=== PATIENT | female | born 1960 | race Caucasian/White ===

== ENCOUNTER 2023-08-02 10:35 | Inpatient (IN) | payer OTHER ==
[~2023-08-02] VITALS: Ht 160 cm; Wt 68.5 kg
[2023-08-02 10:50] VITALS: BP 129/69; PULSE 63; RESP 18; TEMP 98.3; O2SAT 99
[2023-08-02] MEDS ORDERED: ALBUTEROL SULFATE 2.5 MG/0.5 ML NEB SOLUTION NEB PRN (11:15)
[2023-08-02] MEDS ORDERED: ONDANSETRON HCL 4 MG TABLET PO PRN (11:15)
[2023-08-02] MEDS ORDERED: BISACODYL 10 MG RECTAL RECTAL SUPPOSITORY PR PRN (11:15)
[2023-08-02] MEDS ORDERED: HydrALAZINE HCL 50 MG TABLET PO PRN (11:15)
[2023-08-02] MEDS ORDERED: HYDROCODONE/ACETAMINOPHEN 10-325 MG TABLET PO PRN (11:15)
[2023-08-02] MEDS ORDERED: DEXTROSE 50%-WATER 25 GM/50 ML SYRINGE IVP PRN (11:15)
[2023-08-02] MEDS ORDERED: MAGNESIUM HYDROXIDE SUSPENSION 30 ML UDCUP PO PRN (11:15)
[2023-08-02] MEDS: INSULIN LISPRO 100 UNITS/ML SQ PRN (12:56)
[2023-08-02 13:01] LABS: GLUCOMETER DEV NAME(LOC) 2WR.1D; GLUCOSE,POINT OF CARE 187 MG/DL (70-110)
[2023-08-02 14:18] VITALS: O2SAT 99
[2023-08-02 17:31] LABS: GLUCOMETER DEV NAME(LOC) 2WR.1D; GLUCOSE,POINT OF CARE 107 MG/DL (70-110)
[2023-08-02 20:00] VITALS: BP 145/74; PULSE 71; RESP 19; TEMP 98.1; O2SAT 97
[2023-08-02] MEDS: INSULIN GLARGINE,HUM.REC.ANLOG 100 UNITS/ML SQ SCH (20:48)
[2023-08-02] MEDS: LISINOPRIL 20 MG TABLET PO SCH (20:49)
[2023-08-02] MEDS: METOPROLOL TARTRATE 50 MG TABLET PO SCH (20:50)
[2023-08-02 21:11] LABS: GLUCOMETER DEV NAME(LOC) 2WR.1D; GLUCOSE,POINT OF CARE 133 MG/DL (70-110)
[2023-08-03 06:00] VITALS: BP 151/87; PULSE 67; RESP 18; O2SAT 96
[2023-08-03] MEDS: HydrALAZINE HCL 50 MG TABLET PO SCH ×3 (06:06→20:26)
[2023-08-03 06:26] LABS: GLUCOMETER DEV NAME(LOC) 2WR.1D; GLUCOSE,POINT OF CARE 109 MG/DL (70-110)
[2023-08-03 07:12] LABS: BASOPHILS % (AUTO) 1.3 % (0.0-2.0); EOSINOPHILS % (AUTO) 1.5 % (1.0-6.0); HEMATOCRIT 38.7 % (36-46); HEMOGLOBIN 13.3 g/dL (12.0-16.0); LYMPHOCYTES # (AUTO) 1.6 K/uL (1.0-4.8); LYMPHOCYTES % (AUTO) 20.8 % (22.0-44.0); MEAN CORPUSCULAR HEMOGLOBIN 32.8 pg (26.0-34.0); MEAN CORPUSCULAR HGB CONC 34.4 G/dL (31.0-37.0); MEAN CORPUSCULAR VOLUME 95 fL (80-100); MONOCYTES # (AUTO) 0.6 K/uL (0.1-1.0); NEUTROPHILS # (AUTO) 5.3 K/uL (1.8-7.7); NEUTROPHILS % (AUTO) 68.4 % (40.0-70.0); PLATELET COUNT (AUTO) 181 K/uL (150-450); RED BLOOD CELL COUNT(AUTO) 4.06 MIL/uL (4.00-5.20); RED CELL DISTRIBUTION WIDTH 12.7 % (11.5-14.5); WHITE BLOOD COUNT (AUTO) 7.8 K/uL (4.5-11.0)
[2023-08-03 07:30] LABS: ALBUMIN 3.2 g/dL (3.4-5.0); BILIRUBIN,TOTAL 0.5 mg/dL (0.1-1.0); CALCIUM, TOTAL 9.9 mg/dL (8.8-10.5); CREATININE 1.26 mg/dL (0.60-1.30); POTASSIUM 3.6 mmol/L (3.5-5.1); TOTAL PROTEIN, SERUM 7.1 g/dL (6.4-8.2)
[2023-08-03 08:05] VITALS: BP 128/63; PULSE 71; RESP 18; TEMP 98.2; O2SAT 98
[2023-08-03] MEDS: ENOXAPARIN SODIUM 40 MG/0.4 ML PF SYRINGE SQ SCH (08:15)
[2023-08-03] MEDS: AmLODIPine BESYLATE 10 MG TABLET PO SCH (08:18)
[2023-08-03] MEDS: CLOPIDOGREL BISULFATE 75 MG TABLET PO SCH (08:18)
[2023-08-03] MEDS: LISINOPRIL 20 MG TABLET PO SCH ×2 (08:18→20:26)
[2023-08-03] MEDS: ATORVASTATIN CALCIUM 40 MG TABLET PO SCH (08:18)
[2023-08-03] MEDS: ASPIRIN 81 MG CHEWABLE TABLET PO SCH (08:18)
[2023-08-03] MEDS: METOPROLOL TARTRATE 50 MG TABLET PO SCH ×2 (08:19→20:26)
[2023-08-03] MEDS: LORATADINE 10 MG TABLET PO SCH (08:19)
[2023-08-03] MEDS: FLUTICASONE/VILANTEROL 200-25 MCG/INH INHALER [14] IH SCH (08:25)
[2023-08-03] MEDS: FLUTICASONE PROPIONATE 50 MCG/SPRAY 16 GM NASAL SPRAY NASAL SCH (08:26)
[2023-08-03] MEDS: INSULIN GLARGINE,HUM.REC.ANLOG 100 UNITS/ML SQ SCH ×2 (08:31→20:32)
[2023-08-03 11:35] LABS: GLUCOMETER DEV NAME(LOC) 2WR.2B; GLUCOSE,POINT OF CARE 142 MG/DL (70-110)
[2023-08-03] MEDS: INSULIN LISPRO 100 UNITS/ML SQ PRN ×2 (12:51→20:33)
[2023-08-03] MEDS: ACETAMINOPHEN 325 MG TABLET PO PRN (15:19)
[2023-08-03] MEDS: FLUoxetine HCL 10 MG CAPSULE PO SCH (17:05)
[2023-08-03 17:37] LABS: GLUCOMETER DEV NAME(LOC) 2WR.2B; GLUCOSE,POINT OF CARE 112 MG/DL (70-110)
[2023-08-03 20:10] LABS: APPEARANCE,URINE HAZY (CLEAR); BILIRUBIN,URINE NEGATIVE (NEGATIVE); COLOR,URINE YELLOW (YELLOW); GLUCOSE, URINE (UA) NEGATIVE (NEGATIVE); KETONES,URINE NEGATIVE (NEGATIVE); LEUKOCYTE ESTERASE ,URINE SMALL (NEGATIVE); NITRATE,URINE POSITIVE (NEGATIVE); OCCULT BLOOD,URINE NEGATIVE (NEGATIVE); PROTEIN,URINE 30-70 mg/dL (NEGATIVE); UROBILINOGEN,URINE <=1.0 mg/dL (<=1.0)
[2023-08-03 20:22] LABS: BACTERIA,URINE Many /HPF (None Seen); HYALINE CASTS, URINE 0-2 /LPF (None Seen); RBC,URINE 0-2 /HPF (0-2); SQUAMOUS EPITHELIAL CELL,UR Moderate /LPF (None Seen)
[2023-08-03 21:00] VITALS: BP 144/76; PULSE 79; RESP 19; TEMP 98.2; O2SAT 98
[2023-08-03] MEDS: ZOLPIDEM TARTRATE 10 MG TABLET PO PRN (21:56)
[2023-08-03 21:57] LABS: GLUCOMETER DEV NAME(LOC) 2WR.2B; GLUCOSE,POINT OF CARE 146 MG/DL (70-110)
[2023-08-04 05:44] VITALS: BP 136/69; PULSE 70; RESP 18; O2SAT 97
[2023-08-04] MEDS: HydrALAZINE HCL 50 MG TABLET PO SCH ×3 (05:45→20:32)
[2023-08-04 07:06] LABS: GLUCOMETER DEV NAME(LOC) 2WR.1D; GLUCOSE,POINT OF CARE 199 MG/DL (70-110)
[2023-08-04 08:05] VITALS: BP 122/60; PULSE 77; RESP 18; TEMP 98.1; O2SAT 98
[2023-08-04] MEDS: INSULIN LISPRO 100 UNITS/ML SQ PRN ×3 (08:06→20:41)
[2023-08-04] MEDS: FLUTICASONE/VILANTEROL 200-25 MCG/INH INHALER [14] IH SCH (08:10)
[2023-08-04] MEDS: ATORVASTATIN CALCIUM 40 MG TABLET PO SCH (08:11)
[2023-08-04] MEDS: FLUTICASONE PROPIONATE 50 MCG/SPRAY 16 GM NASAL SPRAY NASAL SCH (08:11)
[2023-08-04] MEDS: CLOPIDOGREL BISULFATE 75 MG TABLET PO SCH (08:12)
[2023-08-04] MEDS: AmLODIPine BESYLATE 10 MG TABLET PO SCH (08:12)
[2023-08-04] MEDS: ASPIRIN 81 MG CHEWABLE TABLET PO SCH (08:12)
[2023-08-04] MEDS: LISINOPRIL 20 MG TABLET PO SCH ×2 (08:12→20:32)
[2023-08-04] MEDS: FLUoxetine HCL 10 MG CAPSULE PO SCH (08:14)
[2023-08-04] MEDS: METOPROLOL TARTRATE 50 MG TABLET PO SCH ×2 (08:14→20:32)
[2023-08-04] MEDS: LORATADINE 10 MG TABLET PO SCH (08:15)
[2023-08-04] MEDS: ENOXAPARIN SODIUM 40 MG/0.4 ML PF SYRINGE SQ SCH (08:20)
[2023-08-04] MEDS: INSULIN GLARGINE,HUM.REC.ANLOG 100 UNITS/ML SQ SCH ×2 (08:23→20:39)
[2023-08-04 10:15] VITALS: BP 131/64; PULSE 82; RESP 18; TEMP 98; O2SAT 98
[2023-08-04] MEDS: ACETAMINOPHEN 325 MG TABLET PO PRN (10:15)
[2023-08-04 11:46] LABS: GLUCOMETER DEV NAME(LOC) 2WR.1D; GLUCOSE,POINT OF CARE 144 MG/DL (70-110)
[2023-08-04 13:33] VITALS: BP 128/72; PULSE 78; RESP 18; TEMP 98.4; O2SAT 98
[2023-08-04 17:36] LABS: GLUCOMETER DEV NAME(LOC) 2WR.2B; GLUCOSE,POINT OF CARE 111 MG/DL (70-110)
[2023-08-04 20:11] VITALS: BP 143/83; PULSE 87; RESP 18; TEMP 98.2; O2SAT 95
[2023-08-04 21:21] LABS: GLUCOMETER DEV NAME(LOC) 2WR.2B; GLUCOSE,POINT OF CARE 179 MG/DL (70-110)
[2023-08-05 06:49] VITALS: BP 155/71; PULSE 78; RESP 18; O2SAT 97
[2023-08-05] MEDS: HydrALAZINE HCL 50 MG TABLET PO SCH ×3 (06:51→22:07)
[2023-08-05 08:10] VITALS: BP 144/59; PULSE 70; RESP 18; TEMP 97.6; O2SAT 99
[2023-08-05 08:11] LABS: GLUCOMETER DEV NAME(LOC) 2WR.1D; GLUCOSE,POINT OF CARE 120 MG/DL (70-110)
[2023-08-05] MEDS: CLOPIDOGREL BISULFATE 75 MG TABLET PO SCH (09:29)
[2023-08-05] MEDS: LISINOPRIL 20 MG TABLET PO SCH ×2 (09:29→20:35)
[2023-08-05] MEDS: ASPIRIN 81 MG CHEWABLE TABLET PO SCH (09:29)
[2023-08-05] MEDS: AmLODIPine BESYLATE 10 MG TABLET PO SCH (09:29)
[2023-08-05] MEDS: METOPROLOL TARTRATE 50 MG TABLET PO SCH ×2 (09:30→20:36)
[2023-08-05] MEDS: FLUoxetine HCL 10 MG CAPSULE PO SCH (09:30)
[2023-08-05] MEDS: ATORVASTATIN CALCIUM 40 MG TABLET PO SCH (09:30)
[2023-08-05] MEDS: ENOXAPARIN SODIUM 40 MG/0.4 ML PF SYRINGE SQ SCH (09:31)
[2023-08-05] MEDS: FLUTICASONE/VILANTEROL 200-25 MCG/INH INHALER [14] IH SCH (09:31)
[2023-08-05] MEDS: LORATADINE 10 MG TABLET PO SCH (09:31)
[2023-08-05] MEDS: FLUTICASONE PROPIONATE 50 MCG/SPRAY 16 GM NASAL SPRAY NASAL SCH (09:32)
[2023-08-05] MEDS: INSULIN GLARGINE,HUM.REC.ANLOG 100 UNITS/ML SQ SCH ×2 (09:33→20:39)
[2023-08-05] MEDS: INSULIN LISPRO 100 UNITS/ML SQ PRN (12:12)
[2023-08-05 13:06] LABS: GLUCOMETER DEV NAME(LOC) 2WR.1D; GLUCOSE,POINT OF CARE 188 MG/DL (70-110)
[2023-08-05 14:46] VITALS: BP 137/78; PULSE 58
[2023-08-05 17:41] LABS: GLUCOMETER DEV NAME(LOC) 2WR.2B; GLUCOSE,POINT OF CARE 94 MG/DL (70-110)
[2023-08-05 19:58] VITALS: BP 143/62; PULSE 66; RESP 18; TEMP 97.5; O2SAT 98
[2023-08-05 22:06] VITALS: BP 129/63; PULSE 59
[2023-08-05] MEDS: ZOLPIDEM TARTRATE 10 MG TABLET PO PRN (22:07)
[2023-08-05] MEDS: ETHYL ALCOHOL 62% ANTISEPTIC NASAL SANITIZER 0.6 ML AMPUL NASAL SCH (22:07)
[2023-08-05 22:26] LABS: GLUCOMETER DEV NAME(LOC) 2WR.1D; GLUCOSE,POINT OF CARE 131 MG/DL (70-110)
[2023-08-06 05:34] VITALS: BP 139/56; PULSE 69
[2023-08-06] MEDS: HydrALAZINE HCL 50 MG TABLET PO SCH ×4 (05:35→21:00)
[2023-08-06 06:36] LABS: GLUCOMETER DEV NAME(LOC) 2WR.1D; GLUCOSE,POINT OF CARE 125 MG/DL (70-110)
[2023-08-06 08:01] VITALS: BP 137/53; PULSE 65; RESP 18; TEMP 98.3; O2SAT 98
[2023-08-06] MEDS: FLUTICASONE/VILANTEROL 200-25 MCG/INH INHALER [14] IH SCH (08:07)
[2023-08-06] MEDS: FLUoxetine HCL 10 MG CAPSULE PO SCH (08:08)
[2023-08-06] MEDS: LISINOPRIL 20 MG TABLET PO SCH ×2 (08:08→20:22)
[2023-08-06] MEDS: METOPROLOL TARTRATE 50 MG TABLET PO SCH ×2 (08:08→20:22)
[2023-08-06] MEDS: ATORVASTATIN CALCIUM 40 MG TABLET PO SCH (08:08)
[2023-08-06] MEDS: FLUTICASONE PROPIONATE 50 MCG/SPRAY 16 GM NASAL SPRAY NASAL SCH (08:08)
[2023-08-06] MEDS: ENOXAPARIN SODIUM 40 MG/0.4 ML PF SYRINGE SQ SCH (08:08)
[2023-08-06] MEDS: AmLODIPine BESYLATE 10 MG TABLET PO SCH (08:09)
[2023-08-06] MEDS: CLOPIDOGREL BISULFATE 75 MG TABLET PO SCH (08:09)
[2023-08-06] MEDS: ETHYL ALCOHOL 62% ANTISEPTIC NASAL SANITIZER 0.6 ML AMPUL NASAL SCH ×2 (08:09→20:22)
[2023-08-06] MEDS: ASPIRIN 81 MG CHEWABLE TABLET PO SCH (08:09)
[2023-08-06] MEDS: LORATADINE 10 MG TABLET PO SCH (08:11)
[2023-08-06] MEDS: INSULIN GLARGINE,HUM.REC.ANLOG 100 UNITS/ML SQ SCH ×2 (08:14→20:56)
[2023-08-06] MEDS: INSULIN LISPRO 100 UNITS/ML SQ PRN ×2 (12:02→20:57)
[2023-08-06 13:41] LABS: GLUCOMETER DEV NAME(LOC) 2WR.2B; GLUCOSE,POINT OF CARE 201 MG/DL (70-110)
[2023-08-06 14:35] VITALS: BP 141/55; PULSE 62
[2023-08-06 18:06] LABS: GLUCOMETER DEV NAME(LOC) 2WR.1D; GLUCOSE,POINT OF CARE 118 MG/DL (70-110)
[2023-08-06] MEDS: ZOLPIDEM TARTRATE 10 MG TABLET PO PRN (20:25)
[2023-08-06 20:51] LABS: GLUCOMETER DEV NAME(LOC) 2WR.2B; GLUCOSE,POINT OF CARE 169 MG/DL (70-110)
[2023-08-06 21:00] VITALS: BP 141/76; PULSE 78; RESP 18; TEMP 98.2; O2SAT 96
[2023-08-07 05:15] VITALS: BP 134/67; PULSE 66; RESP 18
[2023-08-07] MEDS: HydrALAZINE HCL 50 MG TABLET PO SCH ×3 (05:19→22:17)
[2023-08-07 06:41] LABS: GLUCOMETER DEV NAME(LOC) 2WR.2B; GLUCOSE,POINT OF CARE 178 MG/DL (70-110)
[2023-08-07] MEDS: FLUTICASONE/VILANTEROL 200-25 MCG/INH INHALER [14] IH SCH (08:05)
[2023-08-07] MEDS: FLUTICASONE PROPIONATE 50 MCG/SPRAY 16 GM NASAL SPRAY NASAL SCH (08:06)
[2023-08-07] MEDS: FLUoxetine HCL 10 MG CAPSULE PO SCH (08:09)
[2023-08-07] MEDS: ETHYL ALCOHOL 62% ANTISEPTIC NASAL SANITIZER 0.6 ML AMPUL NASAL SCH ×2 (08:09→20:48)
[2023-08-07] MEDS: AmLODIPine BESYLATE 10 MG TABLET PO SCH (08:09)
[2023-08-07] MEDS: LORATADINE 10 MG TABLET PO SCH (08:09)
[2023-08-07] MEDS: METOPROLOL TARTRATE 50 MG TABLET PO SCH ×2 (08:09→20:48)
[2023-08-07] MEDS: CLOPIDOGREL BISULFATE 75 MG TABLET PO SCH (08:09)
[2023-08-07] MEDS: LISINOPRIL 20 MG TABLET PO SCH (08:09)
[2023-08-07] MEDS: ASPIRIN 81 MG CHEWABLE TABLET PO SCH (08:09)
[2023-08-07] MEDS: ENOXAPARIN SODIUM 40 MG/0.4 ML PF SYRINGE SQ SCH (08:09)
[2023-08-07 08:10] VITALS: BP 136/60; PULSE 69; RESP 18; TEMP 98.3; O2SAT 100
[2023-08-07] MEDS: ATORVASTATIN CALCIUM 40 MG TABLET PO SCH (08:10)
[2023-08-07] MEDS: INSULIN GLARGINE,HUM.REC.ANLOG 100 UNITS/ML SQ SCH (08:27)
[2023-08-07] MEDS: INSULIN LISPRO 100 UNITS/ML SQ PRN ×3 (08:29→18:15)
[2023-08-07 08:33] LABS: BASOPHILS % (AUTO) 1.3 % (0.0-2.0); EOSINOPHILS % (AUTO) 2.8 % (1.0-6.0); HEMATOCRIT 37.2 % (36-46); HEMOGLOBIN 12.6 g/dL (12.0-16.0); LYMPHOCYTES # (AUTO) 2.2 K/uL (1.0-4.8); LYMPHOCYTES % (AUTO) 28.4 % (22.0-44.0); MEAN CORPUSCULAR HEMOGLOBIN 32.5 pg (26.0-34.0); MEAN CORPUSCULAR HGB CONC 33.8 G/dL (31.0-37.0); MEAN CORPUSCULAR VOLUME 96 fL (80-100); MONOCYTES # (AUTO) 0.6 K/uL (0.1-1.0); MONOCYTES % (AUTO) 8.2 % (2.0-9.0); NEUTROPHILS # (AUTO) 4.5 K/uL (1.8-7.7); NEUTROPHILS % (AUTO) 59.3 % (40.0-70.0); PLATELET COUNT (AUTO) 206 K/uL (150-450); RED BLOOD CELL COUNT(AUTO) 3.87 MIL/uL (4.00-5.20); RED CELL DISTRIBUTION WIDTH 12.9 % (11.5-14.5); WHITE BLOOD COUNT (AUTO) 7.6 K/uL (4.5-11.0)
[2023-08-07 08:39] LABS: CREATININE 1.45 mg/dL (0.60-1.30); POTASSIUM 4.1 mmol/L (3.5-5.1)
[2023-08-07] MEDS ORDERED: SODIUM CHLORIDE 0.9% 500 ML IV ONE (12:30)
[2023-08-07 12:36] LABS: GLUCOMETER DEV NAME(LOC) 2WR.2B; GLUCOSE,POINT OF CARE 193 MG/DL (70-110)
[2023-08-07] MEDS: GlipiZIDE 5 MG TABLET PO SCH (16:11)
[2023-08-07 18:27] LABS: GLUCOMETER DEV NAME(LOC) 2WR.2B; GLUCOSE,POINT OF CARE 164 MG/DL (70-110)
[2023-08-07 20:36] LABS: GLUCOMETER DEV NAME(LOC) 2WR.1D; GLUCOSE,POINT OF CARE 69 MG/DL (70-110)
[2023-08-07] MEDS: NEOMYCIN/BACITRACIN/POLYMYXIN B 30 GM OINTMENT TP SCH (20:48)
[2023-08-07] MEDS: HEPARIN SODIUM,PORCINE 5,000 UNITS/ML VIAL SQ SCH (20:48)
[2023-08-07] MEDS: ZOLPIDEM TARTRATE 10 MG TABLET PO PRN (20:50)
[2023-08-07 21:00] VITALS: BP 151/66; PULSE 80; RESP 18; TEMP 98.1; O2SAT 96
[2023-08-07 21:46] LABS: GLUCOMETER DEV NAME(LOC) 2WR.2B; GLUCOSE,POINT OF CARE 133 MG/DL (70-110)
[2023-08-08] MEDS ORDERED: CETI-450 PO (00:34)
[2023-08-08] MEDS ORDERED: ASPI-1450 PO (00:34)
[2023-08-08] MEDS ORDERED: AMLO-258 PO (03:06)
[2023-08-08] MEDS ORDERED: CLOP75TA60 PO (03:07)
[2023-08-08] MEDS ORDERED: FLUO10CA24 PO (03:07)
[2023-08-08] MEDS ORDERED: ATOR40TA28 PO (03:07)
[2023-08-08] MEDS ORDERED: METO50 PO (03:07)
[2023-08-08] MEDS ORDERED: HYDR50TA36 PO (03:07)
[2023-08-08] MEDS ORDERED: LORA10TA7 PO (03:07)
[2023-08-08] MEDS ORDERED: LISI-894 PO (03:07)
[2023-08-08] MEDS ORDERED: GLIP-333 PO (03:07)
[2023-08-08] MEDS: HydrALAZINE HCL 50 MG TABLET PO SCH ×3 (05:39→21:56)
[2023-08-08 06:00] VITALS: BP 152/74; PULSE 67
[2023-08-08 06:46] LABS: GLUCOMETER DEV NAME(LOC) 2WR.2B; GLUCOSE,POINT OF CARE 128 MG/DL (70-110)
[2023-08-08 07:24] LABS: CREATININE 1.36 mg/dL (0.60-1.30); POTASSIUM 4.3 mmol/L (3.5-5.1)
[2023-08-08 07:35] VITALS: BP 147/60; PULSE 69; RESP 18; TEMP 98.2; O2SAT 99
[2023-08-08] MEDS: ATORVASTATIN CALCIUM 40 MG TABLET PO SCH (07:46)
[2023-08-08] MEDS: AmLODIPine BESYLATE 10 MG TABLET PO SCH (07:46)
[2023-08-08] MEDS: ASPIRIN 81 MG CHEWABLE TABLET PO SCH (07:47)
[2023-08-08] MEDS: CLOPIDOGREL BISULFATE 75 MG TABLET PO SCH (07:47)
[2023-08-08] MEDS: NEOMYCIN/BACITRACIN/POLYMYXIN B 30 GM OINTMENT TP SCH ×2 (07:47→20:28)
[2023-08-08] MEDS: LISINOPRIL 20 MG TABLET PO SCH (07:47)
[2023-08-08] MEDS: HEPARIN SODIUM,PORCINE 5,000 UNITS/ML VIAL SQ SCH ×2 (07:47→20:30)
[2023-08-08] MEDS: FLUTICASONE PROPIONATE 50 MCG/SPRAY 16 GM NASAL SPRAY NASAL SCH (07:48)
[2023-08-08] MEDS: GlipiZIDE 5 MG TABLET PO SCH ×2 (07:49→16:32)
[2023-08-08] MEDS: FLUTICASONE/VILANTEROL 200-25 MCG/INH INHALER [14] IH SCH (07:49)
[2023-08-08] MEDS: METOPROLOL TARTRATE 50 MG TABLET PO SCH ×2 (07:49→20:28)
[2023-08-08] MEDS: LORATADINE 10 MG TABLET PO SCH (07:49)
[2023-08-08] MEDS: ETHYL ALCOHOL 62% ANTISEPTIC NASAL SANITIZER 0.6 ML AMPUL NASAL SCH ×2 (07:50→20:28)
[2023-08-08] MEDS: FLUoxetine HCL 10 MG CAPSULE PO SCH (07:50)
[2023-08-08] MEDS: CIPROFLOXACIN HCL 250 MG TABLET PO SCH ×2 (09:45→20:28)
[2023-08-08] MEDS: INSULIN LISPRO 100 UNITS/ML SQ PRN ×3 (12:22→20:35)
[2023-08-08 12:47] LABS: GLUCOMETER DEV NAME(LOC) 2WR.2B; GLUCOSE,POINT OF CARE 211 MG/DL (70-110)
[2023-08-08 14:42] VITALS: BP 128/55; PULSE 61
[2023-08-08 17:45] LABS: GLUCOMETER DEV NAME(LOC) 2WR.2B; GLUCOSE,POINT OF CARE 159 MG/DL (70-110)
[2023-08-08] MEDS: ACETAMINOPHEN 325 MG TABLET PO PRN (18:29)
[2023-08-08 18:55] VITALS: PULSE 72; RESP 16; O2SAT 97
[2023-08-08 21:00] VITALS: BP 146/59; PULSE 72; RESP 19; TEMP 98.1; O2SAT 98
[2023-08-08 22:00] VITALS: BP 148/62; PULSE 70; RESP 18; O2SAT 98
[2023-08-08] MEDS: ZOLPIDEM TARTRATE 10 MG TABLET PO PRN (22:00)
[2023-08-09 05:11] LABS: GLUCOMETER DEV NAME(LOC) 2WR.2B; GLUCOSE,POINT OF CARE 185 MG/DL (70-110)
[2023-08-09 06:00] VITALS: BP 147/71; PULSE 63
[2023-08-09] MEDS: HydrALAZINE HCL 50 MG TABLET PO SCH ×3 (06:15→22:31)
[2023-08-09 06:47] LABS: GLUCOMETER DEV NAME(LOC) 2WR.2B; GLUCOSE,POINT OF CARE 138 MG/DL (70-110)
[2023-08-09] MEDS: GlipiZIDE 5 MG TABLET PO SCH ×2 (07:54→16:15)
[2023-08-09] MEDS: NEOMYCIN/BACITRACIN/POLYMYXIN B 30 GM OINTMENT TP SCH ×2 (08:12→22:30)
[2023-08-09] MEDS: FLUTICASONE/VILANTEROL 200-25 MCG/INH INHALER [14] IH SCH (08:12)
[2023-08-09] MEDS: ETHYL ALCOHOL 62% ANTISEPTIC NASAL SANITIZER 0.6 ML AMPUL NASAL SCH ×2 (08:13→22:30)
[2023-08-09] MEDS: HEPARIN SODIUM,PORCINE 5,000 UNITS/ML VIAL SQ SCH ×2 (08:13→22:30)
[2023-08-09] MEDS: FLUTICASONE PROPIONATE 50 MCG/SPRAY 16 GM NASAL SPRAY NASAL SCH (08:13)
[2023-08-09] MEDS: AmLODIPine BESYLATE 10 MG TABLET PO SCH (08:14)
[2023-08-09] MEDS: ATORVASTATIN CALCIUM 40 MG TABLET PO SCH (08:14)
[2023-08-09] MEDS: CIPROFLOXACIN HCL 250 MG TABLET PO SCH ×2 (08:14→22:30)
[2023-08-09] MEDS: FLUoxetine HCL 10 MG CAPSULE PO SCH (08:14)
[2023-08-09] MEDS: CLOPIDOGREL BISULFATE 75 MG TABLET PO SCH (08:14)
[2023-08-09] MEDS: METOPROLOL TARTRATE 50 MG TABLET PO SCH ×2 (08:14→22:31)
[2023-08-09] MEDS: LISINOPRIL 20 MG TABLET PO SCH (08:14)
[2023-08-09] MEDS: LORATADINE 10 MG TABLET PO SCH (08:14)
[2023-08-09] MEDS: ASPIRIN 81 MG CHEWABLE TABLET PO SCH (08:15)
[2023-08-09 08:52] VITALS: BP 140/58; PULSE 68; RESP 17; TEMP 98.4; O2SAT 99
[2023-08-09] MEDS: INSULIN LISPRO 100 UNITS/ML SQ PRN (12:35)
[2023-08-09 13:10] LABS: GLUCOMETER DEV NAME(LOC) 2WR.2B; GLUCOSE,POINT OF CARE 198 MG/DL (70-110)
[2023-08-09 18:16] LABS: GLUCOMETER DEV NAME(LOC) 2WR.2B; GLUCOSE,POINT OF CARE 117 MG/DL (70-110)
[2023-08-09 20:00] VITALS: BP 144/76; PULSE 73; RESP 16; TEMP 98.2; O2SAT 98
[2023-08-09 20:51] LABS: GLUCOMETER DEV NAME(LOC) 2WR.2B; GLUCOSE,POINT OF CARE 108 MG/DL (70-110)
[2023-08-09] MEDS: ZOLPIDEM TARTRATE 10 MG TABLET PO PRN (22:30)
[2023-08-10 06:31] VITALS: BP 126/64; PULSE 65
[2023-08-10] MEDS: HydrALAZINE HCL 50 MG TABLET PO SCH ×3 (06:36→20:20)
[2023-08-10 07:02] LABS: GLUCOMETER DEV NAME(LOC) 2WR.2B; GLUCOSE,POINT OF CARE 135 MG/DL (70-110)
[2023-08-10] MEDS: CIPROFLOXACIN HCL 250 MG TABLET PO SCH ×2 (08:23→20:20)
[2023-08-10] MEDS: NEOMYCIN/BACITRACIN/POLYMYXIN B 30 GM OINTMENT TP SCH ×2 (08:23→20:20)
[2023-08-10] MEDS: GlipiZIDE 5 MG TABLET PO SCH ×2 (08:24→15:50)
[2023-08-10] MEDS: FLUTICASONE PROPIONATE 50 MCG/SPRAY 16 GM NASAL SPRAY NASAL SCH (08:25)
[2023-08-10] MEDS: FLUoxetine HCL 10 MG CAPSULE PO SCH (08:25)
[2023-08-10] MEDS: METOPROLOL TARTRATE 50 MG TABLET PO SCH ×2 (08:26→20:20)
[2023-08-10] MEDS: LORATADINE 10 MG TABLET PO SCH (08:26)
[2023-08-10] MEDS: ETHYL ALCOHOL 62% ANTISEPTIC NASAL SANITIZER 0.6 ML AMPUL NASAL SCH ×2 (08:26→20:19)
[2023-08-10] MEDS: HEPARIN SODIUM,PORCINE 5,000 UNITS/ML VIAL SQ SCH ×2 (08:31→20:20)
[2023-08-10] MEDS: LISINOPRIL 20 MG TABLET PO SCH (08:36)
[2023-08-10] MEDS: AmLODIPine BESYLATE 10 MG TABLET PO SCH (08:36)
[2023-08-10] MEDS: ASPIRIN 81 MG CHEWABLE TABLET PO SCH (08:37)
[2023-08-10] MEDS: CLOPIDOGREL BISULFATE 75 MG TABLET PO SCH (08:38)
[2023-08-10] MEDS: ATORVASTATIN CALCIUM 40 MG TABLET PO SCH (08:39)
[2023-08-10] MEDS: FLUTICASONE/VILANTEROL 200-25 MCG/INH INHALER [14] IH SCH (08:51)
[2023-08-10 08:57] VITALS: BP 138/65; PULSE 78; RESP 18; TEMP 98.3; O2SAT 98
[2023-08-10] MEDS: INSULIN LISPRO 100 UNITS/ML SQ PRN (12:30)
[2023-08-10 12:37] LABS: GLUCOMETER DEV NAME(LOC) 2WR.2B; GLUCOSE,POINT OF CARE 254 MG/DL (70-110)
[2023-08-10 17:06] LABS: GLUCOMETER DEV NAME(LOC) 2WR.1D; GLUCOSE,POINT OF CARE 136 MG/DL (70-110)
[2023-08-10] MEDS: ZOLPIDEM TARTRATE 10 MG TABLET PO PRN (20:21)
[2023-08-10 20:56] LABS: GLUCOMETER DEV NAME(LOC) 2WR.2B; GLUCOSE,POINT OF CARE 110 MG/DL (70-110)
[2023-08-10 21:00] VITALS: BP 146/63; PULSE 75; RESP 18; TEMP 98.3; O2SAT 98
[2023-08-11 05:10] VITALS: BP 138/60; PULSE 63; RESP 18
[2023-08-11] MEDS: HydrALAZINE HCL 50 MG TABLET PO SCH ×3 (05:14→22:20)
[2023-08-11 05:56] LABS: GLUCOMETER DEV NAME(LOC) 2WR.1D; GLUCOSE,POINT OF CARE 133 MG/DL (70-110)
[2023-08-11] MEDS: NEOMYCIN/BACITRACIN/POLYMYXIN B 30 GM OINTMENT TP SCH ×2 (08:09→20:33)
[2023-08-11] MEDS: FLUTICASONE PROPIONATE 50 MCG/SPRAY 16 GM NASAL SPRAY NASAL SCH (08:09)
[2023-08-11] MEDS: CIPROFLOXACIN HCL 250 MG TABLET PO SCH ×2 (08:11→20:31)
[2023-08-11] MEDS: GlipiZIDE 5 MG TABLET PO SCH ×2 (08:11→17:39)
[2023-08-11] MEDS: LORATADINE 10 MG TABLET PO SCH (08:11)
[2023-08-11] MEDS: ETHYL ALCOHOL 62% ANTISEPTIC NASAL SANITIZER 0.6 ML AMPUL NASAL SCH ×2 (08:11→20:31)
[2023-08-11] MEDS: CLOPIDOGREL BISULFATE 75 MG TABLET PO SCH (08:11)
[2023-08-11] MEDS: ATORVASTATIN CALCIUM 40 MG TABLET PO SCH (08:11)
[2023-08-11] MEDS: METOPROLOL TARTRATE 50 MG TABLET PO SCH ×2 (08:12→20:32)
[2023-08-11] MEDS: AmLODIPine BESYLATE 10 MG TABLET PO SCH (08:12)
[2023-08-11] MEDS: LISINOPRIL 20 MG TABLET PO SCH (08:12)
[2023-08-11] MEDS: ASPIRIN 81 MG CHEWABLE TABLET PO SCH (08:12)
[2023-08-11] MEDS: FLUoxetine HCL 10 MG CAPSULE PO SCH (08:12)
[2023-08-11] MEDS: HEPARIN SODIUM,PORCINE 5,000 UNITS/ML VIAL SQ SCH ×2 (08:13→20:32)
[2023-08-11] MEDS: FLUTICASONE/VILANTEROL 200-25 MCG/INH INHALER [14] IH SCH (08:14)
[2023-08-11 08:20] VITALS: BP 130/64; PULSE 69; RESP 18; TEMP 98.4; O2SAT 98
[2023-08-11 11:41] LABS: GLUCOMETER DEV NAME(LOC) 2WR.2B; GLUCOSE,POINT OF CARE 226 MG/DL (70-110)
[2023-08-11] MEDS: INSULIN LISPRO 100 UNITS/ML SQ PRN ×3 (12:11→22:23)
[2023-08-11 14:00] VITALS: BP 136/72; PULSE 72; RESP 18; TEMP 98; O2SAT 98
[2023-08-11 16:56] LABS: GLUCOMETER DEV NAME(LOC) 2WR.1D; GLUCOSE,POINT OF CARE 165 MG/DL (70-110)
[2023-08-11 20:27] VITALS: BP 128/54; PULSE 79; RESP 18; TEMP 98.4; O2SAT 99
[2023-08-11] MEDS: ROPINIRole HCL 0.25 MG TABLET PO SCH (20:32)
[2023-08-11 22:19] VITALS: BP 143/65; PULSE 74
[2023-08-11] MEDS: ZOLPIDEM TARTRATE 10 MG TABLET PO PRN (22:20)
[2023-08-12] VITALS (7 sets, daily range): BP systolic 134–150; BP diastolic 61–72; PULSE 59–76; RESP 18–19; TEMP 98–98.2; O2SAT 96–100
[2023-08-12 02:36] LABS: GLUCOMETER DEV NAME(LOC) 2WR.1D; GLUCOSE,POINT OF CARE 164 MG/DL (70-110)
[2023-08-12] MEDS: HydrALAZINE HCL 50 MG TABLET PO SCH ×3 (05:50→22:03)
[2023-08-12 07:46] LABS: GLUCOMETER DEV NAME(LOC) 2WR.1D; GLUCOSE,POINT OF CARE 166 MG/DL (70-110)
[2023-08-12] MEDS: GlipiZIDE 5 MG TABLET PO SCH ×2 (08:38→17:21)
[2023-08-12] MEDS: FLUTICASONE/VILANTEROL 200-25 MCG/INH INHALER [14] IH SCH (08:39)
[2023-08-12] MEDS: FLUTICASONE PROPIONATE 50 MCG/SPRAY 16 GM NASAL SPRAY NASAL SCH (08:40)
[2023-08-12] MEDS: ASPIRIN 81 MG CHEWABLE TABLET PO SCH (08:40)
[2023-08-12] MEDS: ETHYL ALCOHOL 62% ANTISEPTIC NASAL SANITIZER 0.6 ML AMPUL NASAL SCH ×2 (08:40→20:05)
[2023-08-12] MEDS: CLOPIDOGREL BISULFATE 75 MG TABLET PO SCH (08:41)
[2023-08-12] MEDS: ATORVASTATIN CALCIUM 40 MG TABLET PO SCH (08:41)
[2023-08-12] MEDS: LORATADINE 10 MG TABLET PO SCH (08:41)
[2023-08-12] MEDS: AmLODIPine BESYLATE 10 MG TABLET PO SCH (08:41)
[2023-08-12] MEDS: CIPROFLOXACIN HCL 250 MG TABLET PO SCH ×2 (08:41→20:05)
[2023-08-12] MEDS: FLUoxetine HCL 10 MG CAPSULE PO SCH (08:41)
[2023-08-12] MEDS: METOPROLOL TARTRATE 50 MG TABLET PO SCH ×2 (08:41→20:05)
[2023-08-12] MEDS: NEOMYCIN/BACITRACIN/POLYMYXIN B 30 GM OINTMENT TP SCH ×2 (08:42→20:02)
[2023-08-12] MEDS: HEPARIN SODIUM,PORCINE 5,000 UNITS/ML VIAL SQ SCH ×2 (08:42→20:05)
[2023-08-12] MEDS: LISINOPRIL 20 MG TABLET PO SCH (08:42)
[2023-08-12] MEDS: INSULIN LISPRO 100 UNITS/ML SQ PRN ×3 (08:45→20:06)
[2023-08-12 12:31] LABS: GLUCOMETER DEV NAME(LOC) 2WR.2B; GLUCOSE,POINT OF CARE 208 MG/DL (70-110)
[2023-08-12 17:46] LABS: GLUCOMETER DEV NAME(LOC) 2WR.2B; GLUCOSE,POINT OF CARE 101 MG/DL (70-110)
[2023-08-12] MEDS: ACETAMINOPHEN 325 MG TABLET PO PRN (20:04)
[2023-08-12] MEDS: ROPINIRole HCL 0.25 MG TABLET PO SCH (20:04)
[2023-08-12 22:01] LABS: GLUCOMETER DEV NAME(LOC) 2WR.1D; GLUCOSE,POINT OF CARE 177 MG/DL (70-110)
[2023-08-12] MEDS: ZOLPIDEM TARTRATE 10 MG TABLET PO PRN (22:03)
[2023-08-13 06:00] VITALS: BP 144/60; PULSE 64; RESP 18; O2SAT 98
[2023-08-13] MEDS: HydrALAZINE HCL 50 MG TABLET PO SCH ×3 (06:10→22:17)
[2023-08-13 07:15] LABS: GLUCOMETER DEV NAME(LOC) 2WR.2B; GLUCOSE,POINT OF CARE 160 MG/DL (70-110)
[2023-08-13] MEDS: HEPARIN SODIUM,PORCINE 5,000 UNITS/ML VIAL SQ SCH ×2 (08:39→19:56)
[2023-08-13] MEDS: ETHYL ALCOHOL 62% ANTISEPTIC NASAL SANITIZER 0.6 ML AMPUL NASAL SCH ×2 (08:42→19:56)
[2023-08-13] MEDS: INSULIN LISPRO 100 UNITS/ML SQ PRN ×3 (08:42→20:04)
[2023-08-13] MEDS: GlipiZIDE 5 MG TABLET PO SCH ×2 (08:44→17:39)
[2023-08-13] MEDS: FLUTICASONE PROPIONATE 50 MCG/SPRAY 16 GM NASAL SPRAY NASAL SCH (08:45)
[2023-08-13] MEDS: AmLODIPine BESYLATE 10 MG TABLET PO SCH (08:46)
[2023-08-13] MEDS: CLOPIDOGREL BISULFATE 75 MG TABLET PO SCH (08:46)
[2023-08-13] MEDS: LISINOPRIL 20 MG TABLET PO SCH (08:46)
[2023-08-13] MEDS: METOPROLOL TARTRATE 50 MG TABLET PO SCH ×2 (08:47→19:56)
[2023-08-13] MEDS: ATORVASTATIN CALCIUM 40 MG TABLET PO SCH (08:47)
[2023-08-13] MEDS: ASPIRIN 81 MG CHEWABLE TABLET PO SCH (08:48)
[2023-08-13] MEDS: FLUTICASONE/VILANTEROL 200-25 MCG/INH INHALER [14] IH SCH (08:49)
[2023-08-13] MEDS: FLUoxetine HCL 10 MG CAPSULE PO SCH (08:50)
[2023-08-13] MEDS: LORATADINE 10 MG TABLET PO SCH (08:50)
[2023-08-13] MEDS: NEOMYCIN/BACITRACIN/POLYMYXIN B 30 GM OINTMENT TP SCH ×2 (08:50→19:55)
[2023-08-13 09:00] VITALS: BP 137/96; PULSE 71; RESP 19; TEMP 97.9; O2SAT 98
[2023-08-13 12:36] LABS: GLUCOMETER DEV NAME(LOC) 2WR.1D; GLUCOSE,POINT OF CARE 235 MG/DL (70-110)
[2023-08-13 18:01] LABS: GLUCOMETER DEV NAME(LOC) 2WR.1D; GLUCOSE,POINT OF CARE 119 MG/DL (70-110)
[2023-08-13 19:51] VITALS: BP 142/60; PULSE 69; RESP 16; TEMP 98.7; O2SAT 98
[2023-08-13] MEDS: ROPINIRole HCL 0.25 MG TABLET PO SCH (19:56)
[2023-08-13 21:01] LABS: GLUCOMETER DEV NAME(LOC) 2WR.1D; GLUCOSE,POINT OF CARE 174 MG/DL (70-110)
[2023-08-13 22:17] VITALS: BP 141/65; PULSE 60
[2023-08-13] MEDS: ZOLPIDEM TARTRATE 10 MG TABLET PO PRN (22:17)
[2023-08-14 05:14] VITALS: BP 143/70; PULSE 66
[2023-08-14] MEDS: HydrALAZINE HCL 50 MG TABLET PO SCH ×2 (05:15→13:32)
[2023-08-14 06:56] LABS: GLUCOMETER DEV NAME(LOC) 2WR.2B; GLUCOSE,POINT OF CARE 163 MG/DL (70-110)
[2023-08-14 07:58] LABS: BASOPHILS % (AUTO) 1.3 % (0.0-2.0); EOSINOPHILS % (AUTO) 2.1 % (1.0-6.0); HEMATOCRIT 37.8 % (36-46); LYMPHOCYTES # (AUTO) 2.2 K/uL (1.0-4.8); LYMPHOCYTES % (AUTO) 26.8 % (22.0-44.0); MEAN CORPUSCULAR HEMOGLOBIN 33.2 pg (26.0-34.0); MEAN CORPUSCULAR HGB CONC 34.4 G/dL (31.0-37.0); MEAN CORPUSCULAR VOLUME 97 fL (80-100); MONOCYTES # (AUTO) 0.5 K/uL (0.1-1.0); MONOCYTES % (AUTO) 6.1 % (2.0-9.0); NEUTROPHILS # (AUTO) 5.2 K/uL (1.8-7.7); NEUTROPHILS % (AUTO) 63.7 % (40.0-70.0); PLATELET COUNT (AUTO) 183 K/uL (150-450); RED BLOOD CELL COUNT(AUTO) 3.92 MIL/uL (4.00-5.20); RED CELL DISTRIBUTION WIDTH 12.7 % (11.5-14.5); WHITE BLOOD COUNT (AUTO) 8.1 K/uL (4.5-11.0)
[2023-08-14] MEDS: GlipiZIDE 5 MG TABLET PO SCH (07:59)
[2023-08-14 08:06] LABS: CALCIUM, TOTAL 10.5 mg/dL (8.8-10.5); CREATININE 1.43 mg/dL (0.60-1.30); POTASSIUM 4.5 mmol/L (3.5-5.1)
[2023-08-14] MEDS: INSULIN LISPRO 100 UNITS/ML SQ PRN ×2 (08:06→12:24)
[2023-08-14] MEDS: HEPARIN SODIUM,PORCINE 5,000 UNITS/ML VIAL SQ SCH (08:10)
[2023-08-14] MEDS: FLUoxetine HCL 10 MG CAPSULE PO SCH (08:11)
[2023-08-14] MEDS: METOPROLOL TARTRATE 50 MG TABLET PO SCH (08:11)
[2023-08-14] MEDS: ASPIRIN 81 MG CHEWABLE TABLET PO SCH (08:11)
[2023-08-14] MEDS: ATORVASTATIN CALCIUM 40 MG TABLET PO SCH (08:11)
[2023-08-14] MEDS: LORATADINE 10 MG TABLET PO SCH (08:11)
[2023-08-14] MEDS: LISINOPRIL 20 MG TABLET PO SCH (08:11)
[2023-08-14] MEDS: AmLODIPine BESYLATE 10 MG TABLET PO SCH (08:11)
[2023-08-14] MEDS: CLOPIDOGREL BISULFATE 75 MG TABLET PO SCH (08:11)
[2023-08-14] MEDS: FLUTICASONE PROPIONATE 50 MCG/SPRAY 16 GM NASAL SPRAY NASAL SCH (08:12)
[2023-08-14] MEDS: NEOMYCIN/BACITRACIN/POLYMYXIN B 30 GM OINTMENT TP SCH (08:13)
[2023-08-14] MEDS: ETHYL ALCOHOL 62% ANTISEPTIC NASAL SANITIZER 0.6 ML AMPUL NASAL SCH (08:13)
[2023-08-14 08:15] VITALS: BP 150/72; PULSE 66; RESP 18; TEMP 98.6; O2SAT 96
[2023-08-14] MEDS: FLUTICASONE/VILANTEROL 200-25 MCG/INH INHALER [14] IH SCH (08:18)
[2023-08-14 12:51] LABS: GLUCOMETER DEV NAME(LOC) 2WR.2B; GLUCOSE,POINT OF CARE 209 MG/DL (70-110)
[2023-08-14 14:00] VITALS: BP 144/65; PULSE 66; RESP 19; TEMP 97.8; O2SAT 100
[2023-08-15] MEDS ORDERED: LISINOPRIL 10 MG TABLET PO SCH (09:00)
== END 2023-08-14 15:00 | DRG 65 ==
LOC: 2WR 10:35
PROVIDERS: ADMIT Physical Medicine & Rehabilitation; ATTEND Physical Medicine & Rehabilitation
DX: I63.511 Cerebral infarction due to unspecified occlusion or stenosis of right middle cerebral artery (principal); G81.94 Hemiplegia, unspecified affecting left nondominant side; N39.0 Urinary tract infection, site not specified; N17.9 Acute kidney failure, unspecified; N18.30 Chronic kidney disease, stage 3 unspecified; E11.22 Type 2 diabetes mellitus with diabetic chronic kidney disease; E03.9 Hypothyroidism, unspecified; I12.9 Hypertensive chronic kidney disease with stage 1 through stage 4 chronic kidney disease, or unspecified chronic kidney disease; J45.909 Unspecified asthma, uncomplicated; G25.81 Restless legs syndrome; F17.210 Nicotine dependence, cigarettes, uncomplicated; E78.5 Hyperlipidemia, unspecified; R26.9 Unspecified abnormalities of gait and mobility; E11.42 Type 2 diabetes mellitus with diabetic polyneuropathy; R41.89 Other symptoms and signs involving cognitive functions and awareness; R47.1 Dysarthria and anarthria; F32.A Depression, unspecified; R13.10 Dysphagia, unspecified; R47.01 Aphasia; B96.20 Unspecified Escherichia coli [E. coli] as the cause of diseases classified elsewhere; Z88.8 Allergy status to other drugs, medicaments and biological substances; Z91.013 Allergy to seafood; Z79.01 Long term (current) use of anticoagulants; Z79.84 Long term (current) use of oral hypoglycemic drugs; Z79.82 Long term (current) use of aspirin; Z79.899 Other long term (current) drug therapy; Z88.0 Allergy status to penicillin; Z79.4 Long term (current) use of insulin; Z80.3 Family history of malignant neoplasm of breast; Z82.49 Family history of ischemic heart disease and other diseases of the circulatory system; Z83.3 Family history of diabetes mellitus; Z80.51 Family history of malignant neoplasm of kidney
CPT/HCPCS: 80048; 80053; 81001; 82962; 85025; 87081; 87086; 87186; 92507; 92523; 92526; 92610; 93970; 97110; 97112; 97116; 97163; 97167; 97530; 97535; 99366; J1644; J1650; J1815; Q9967